=== PATIENT | male | born 1970 ===

== ENCOUNTER 2017-08-18 09:43 | Emergency (ER) | payer OTHER, SELFPAY ==
[2017-08-18 09:43] VITALS: BMI 25.0
[2017-08-18 09:55] VITALS: BP 109/73
--- NOTE | 2017-08-18 10:16 | C.PDOC ---
History Of Present Illness Hx obtained via telephone service representative. 46 year old male presents to the ER with a complaint of generalized arthralgia for the past month. The initial onset was to the bilateral ankles and has now become generalized but greater to the lower extremities than the upper; he also notes back and neck pain. Patient states the pain worsens in the morning but improves"if I keep moving or as day goes by " and recurs "if I sit too long or don't move for awhile". Patient reports mild relief with motrin 400mg Q6. He has associated mild right hand joint swelling. Denies trauma, associated weight loss, fever, GI symptoms, rash, focal weakness/ paresthesia, or travel. Patient is also complaining of a cough for a week. Denies MOSHER, chest pain, or SOB. VIA TRANS GEN ARTHRALGIA X 1 MO. INITIAL ONSET B/L ANKLES, NOW PROGRESS TO GEN BUT LE>UE, LOWER BACK AND NECK PAIN. WORSE IN MORNING BUT IMPROVES "IF I KEEP MOVING OR DAY GOES BY". RECURS "IF I SIT TOO LONG OR DONT MOVE FOR AWHILE". +MILD RELIEF W MOTRIN 400 MG Q6. +R HAND JOINT SWELL, MILD. NO TRAUMA. DENIES ASSOC WT LOSS, FEVER, GI SX, RASH, FOCAL WEAKNESS/PARESTHESIA. NO TRAVEL ALSO CO COUGH X 1 WEEK. NO MOSHER/CP,SOB EXAM NONTOXIC NAD HEENT NEG NECK NONTEND FROM LUNGS CTA B/L NO W/R/R ABD NEG EXT R HAND +MILD JOINT SWELL PIP & DIP NONTEND. LIMITED ROM DUE TO PAIN. B/L LE : NO JOINT SWELL, FULL AROM W PAIN, NONTEND. UE: FULL AROM W BACK NONTEND FROM PAIN, NO SWELL, NONTEND. ATRAUM. SKIN INTACT NO ERYTHEMA, LESIONS GAIT +PAIN B/L FEET W WT BEAR, LIMITED DUE TO PAIN. NEURO NO GROSS FOCAL DEF REMAINDER NEG MDM ARTHRALGIA UNK CAUSE. BRONCHITIS. CBC, PAIN RX, STEROID. ADVISED POSSIBLE NEED FOR RHEUMATOLOGY/CLINIC FU. Time Seen by Provider: 08/18/17 10:11 Chief Complaint (Nursing): Flu-like Symptoms History Per: Patient History/Exam Limitations: no limitations Onset/Duration Of Symptoms: Days Current Symptoms Are (Timing): Still Present Recent travel outside of the [place]: No Past Medical History Reviewed: Historical Data, Nursing Documentation, Vital Signs Vital Signs: Last Vital Signs Temp 98.7 F 08/18/17 09:52 Pulse 84 08/18/17 09:52 Resp 20 08/18/17 09:52 BP 109/73 08/18/17 09:52 Pulse Ox 96 08/18/17 11:00 - Medical History PMH: Back Problems Surgical History: No Surg Hx Family History: States: Unknown Family Hx - Social History Hx Alcohol Use: Yes Hx Substance Use: No - Immunization History Hx Tetanus Toxoid Vaccination: No Hx Influenza Vaccination: No Hx Pneumococcal Vaccination: No Review Of Systems Except As Marked, All Systems Reviewed And Found Negative. Constitutional: Negative for: Fever, Chills, Weight loss Cardiovascular: Negative for: Chest Pain Respiratory: Positive for: Cough. Negative for: Shortness of Breath, SOB with Excertion Gastrointestinal: Negative for: Nausea, Vomiting, Abdominal Pain Musculoskeletal: Positive for: Neck Pain, Arm Pain, Back Pain, Leg Pain Skin: Negative for: Rash Neurological: Negative for: Weakness, Numbness Physical Exam - Physical Exam Appears: Non-toxic, No Acute Distress Skin: Normal Color, Warm, Dry, Other (INTACT NO ERYTHEMA, LESIONS) Head: Atraumatic, Normacephalic Eye(s): bilateral: Normal Inspection Ear(s): Bilateral: Normal Nose: Normal Oral Mucosa: Moist Throat: Normal, No Erythema, No Exudate Neck: Normal, Supple Chest: Symmetrical, No Tenderness Cardiovascular: Rhythm Regular Respiratory: Normal Breath Sounds, No Rales, No Rhonchi, No Wheezing Gastrointestinal/Abdominal: Soft, No Tenderness Extremity: Other (R HAND +MILD JOINT SWELL PIP & DIP NONTEND. LIMITED ROM DUE TO PAIN. B/L LE: NO JOINT SWELL, FULL AROM W PAIN, NONTEND. UE: FULL AROM W PAIN , NO SWELL, NONTEND.) Neurological/Psych: Oriented x3, Normal Speech, Normal Motor, Normal Sensation, Other (NO GROSS FOCAL DEFICIT) Gait: Steady (+PAIN B/L FEET W WT BEAR, LIMITED DUE TO PAIN.) ED Course And Treatment - Laboratory Results Result Diagrams: 08/18/17 10:37 O2 Sat by Pulse Oximetry: 96 (Room air) Pulse Ox Interpretation: Normal - Radiology CXR: Interpreted by Me CXR Interpretation: Yes: No Acute Disease Reevaluation Time: 11:22 Reassessment Condition: Improved Medical Decision Making Medical Decision Making: ARTHRALGIA UNK CAUSE. BRONCHITIS. CBC, PAIN RX, STEROID. ADVISED POSSIBLE NEED FOR RHEUMATOLOGY/CLINIC FU. Disposition Counseled Patient/Family Regarding: Studies Performed, Diagnosis, Need For Followup, Rx Given - Disposition Referrals: [facility] [Outside] [facility] [Outside] Disposition: HOME/ ROUTINE Disposition Time: 11:22 Condition: IMPROVED Prescriptions: Acetaminophen [Tylenol Extra Strength] 2 tab PO Q6 #30 tablet Naproxen 500 mg PO BID #30 tab Instructions: Osteoarthritis (DC) Forms: J[employer]oud (Iraqi) Print Language: ST LUCIAN - Clinical Impression Clinical Impression: Arthralgia - Scribe Statement The provider has reviewed the documentation as recorded by the Scribanish Escalera All medical record entries made by the Williamibanish were at my direction and personally dictated by me. I have reviewed the chart and agree that the record accurately reflects my personal performance of the history, physical exam, medical decision making, and the department course for this patient. I have also personally directed, reviewed, and agree with the discharge instructions and disposition.
[2017-08-18 10:49] LABS: BASO # 0.1 K/uL (0.0-0.2); BASO % 0.6 % (0.0-2.0); EOS # 0.2 K/uL (0.0-0.7); HEMOGLOBIN 13.9 g/dL (12.0-18.0); LYMPH # 1.4 K/uL (1.0-4.3); LYMPH % 14.9 % (20.0-40.0); MEAN CELL VOLUME 87.5 fL (80.0-94.0); MEAN CORPUSCULAR HEMOGLOBIN 30.2 pg (27.0-31.0); MEAN CORPUSCULAR HGB CONC 34.5 g/dL (33.0-37.0); MEAN PLATELET VOLUME 8.4 fL (7.2-11.7); MONO # 0.7 K/uL (0.0-0.8); MONO % 7.4 % (0.0-10.0); NEUT % 75.1 % (50.0-75.0); RBC 4.62 Mil/uL (4.40-5.90); WHITE BLOOD COUNT 9.3 K/uL (4.8-10.8)
[2017-08-18 11:29] VITALS: PULSE 77; RESP 18; TEMP 98; O2SAT 100
--- NOTE | 2017-08-18 15:11 | RAD ---
HISTORY: COUGH COMPARISON: No prior. TECHNIQUE: Chest PA and lateral FINDINGS: LUNGS: No active pulmonary disease. PLEURA: No significant pleural effusion identified. No pneumothorax apparent. CARDIOVASCULAR: Normal. OSSEOUS STRUCTURES: No significant abnormalities. VISUALIZED UPPER ABDOMEN: Normal. OTHER FINDINGS: None. IMPRESSION: No active disease.
== END 2017-08-18 11:28 | disposition home or self-care (01) ==
LOC: C.ER 09:43
DX: M25.572 Pain in left ankle and joints of left foot (principal); M25.571 Pain in right ankle and joints of right foot; M25.541 Pain in joints of right hand
CPT/HCPCS: 71046; 85025; 96372; 99283; J1885; J8540

== ENCOUNTER 2017-12-02 11:12 | Emergency (ER) | payer OTHER ==
[2017-12-02 11:13] VITALS: BMI 25.0
[2017-12-02 11:27] VITALS: RESP 18
--- NOTE | 2017-12-02 11:51 | C.PDOC ---
History Of Present Illness 47 year old male with PMHx of rheumatoid arthritis presents to the ED complaining of left facial numbness with associated left eye irritation for the past 3 days. Reports he is unable to close left eye. Denies any extremity weakness, nausea, vomiting, tingling, rash or any other symptoms. no recent viral illness. no recent exposure to grass. kohli, ticks. Time Seen by Provider: 12/02/17 11:31 Chief Complaint (Nursing): Weakness/Neurological Deficit History Per: Patient, Family () History/Exam Limitations: no limitations Onset/Duration Of Symptoms: Days (3) Current Symptoms Are (Timing): Still Present Past Medical History Reviewed: Historical Data, Nursing Documentation, Vital Signs Vital Signs: Last Vital Signs Temp 97.3 F L 12/02/17 11:22 Pulse 79 12/02/17 11:22 Resp 18 12/02/17 11:22 BP 125/83 12/02/17 11:22 Pulse Ox 98 12/02/17 11:22 - Medical History PMH: Back Problems, Rheumatoid Arthritis Surgical History: No Surg Hx Family History: States: No Known Family Hx - Social History Hx Alcohol Use: Yes Hx Substance Use: No - Immunization History Hx Tetanus Toxoid Vaccination: No Hx Influenza Vaccination: No Hx Pneumococcal Vaccination: No Review Of Systems Eyes: Positive for: Pain (left). Negative for: Vision Change Gastrointestinal: Negative for: Nausea, Vomiting Neurological: Positive for: Weakness (left facial weakness). Negative for: Change in Speech Physical Exam - Physical Exam Appears: Non-toxic Skin: Warm, Dry, No Rash Head: Normacephalic, Other (left facial droop, decreased forehead wrinkle on left side ) Eye(s): bilateral: PERRL, right: EOMI (Unable to close left eye tightly ) Ear(s): Bilateral: Normal, Other (no vesicles noted ) Throat: Normal Neck: Supple Chest: No Tenderness Cardiovascular: Rhythm Regular Respiratory: Normal Breath Sounds, No Rales, No Rhonchi, No Wheezing Gastrointestinal/Abdominal: Soft, No Tenderness Extremity: Normal ROM Extremity: Bilateral: Atraumatic Neurological/Psych: Oriented x3, Normal Speech, Normal Cognition, Normal Motor, Normal Sensation, Normal Reflexes Gait: Steady ED Course And Treatment O2 Sat by Pulse Oximetry: 98 (RA) Pulse Ox Interpretation: Normal Medical Decision Making Medical Decision Making: Plan: - Zovirax 400mg PO - Prednisone 60mg PO pt with sympotms consistent with bells palsy, will tx with acl=yclovir and prednisone and f/u with neuro,. pt shown how to tape eye shut at night. Disposition Counseled Patient/Family Regarding: Diagnosis, Need For Followup, Rx Given - Disposition Referrals: Jennyfer Ferrara MD [Staff Provider] - [facility] [Outside] Martell Ravi [Staff Provider] - Disposition: HOME/ ROUTINE Disposition Time: 13:29 Condition: GOOD Additional Instructions: Por favor tome ambos medicamentos segn lo prescrito. Cinta del natasha jaja cerrado a la hora de acostarse. Lisbeth un seguimiento con un neurlogo, oculista y en yasmani clnica mdica en la prxima semana. Regrese a la collin de emergencias por cualquier sntoma peor. Please take both medications as prescribed. Tape left eye shut at bedtime. Follow up with neurologist, eye doctor and in medicial clinic in the next week. Return to ER for any worse symptms. Prescriptions: Acyclovir 400 mg PO 5XD #50 tablet predniSONE [predniSONE Tab] 40 mg PO DAILY #10 tab Instructions: Rossi's Palsy (DC) Forms: Gen Discharge Inst Andorran, SABIA (Andorran) Print Language: MAORI - Clinical Impression Clinical Impression: Rossi's palsy - PA / HVAC MAINTENANCE TECHNICIAN / Resident Statement MD/DO has reviewed & agrees with the documentation as recorded. - Scribe Statement The provider has reviewed the documentation as recorded by the Scribanish Sutton All medical record entries made by the Scribanish were at my direction and personally dictated by me. I have reviewed the chart and agree that the record accurately reflects my personal performance of the history, physical exam, medical decision making, and the department course for this patient. I have also personally directed, reviewed, and agree with the discharge instructions and disposition.
[2017-12-02 13:39] VITALS: BP 122/78; PULSE 70; TEMP 98; O2SAT 74
== END 2017-12-02 13:45 | disposition home or self-care (01) ==
LOC: C.ER 11:12
DX: G51.0 Bell's palsy (principal)

== ENCOUNTER 2017-12-30 10:03 | Emergency (ER) | payer OTHER ==
[2017-12-30 10:03] VITALS: BMI 25.0
[2017-12-30 10:19] VITALS: RESP 18; TEMP 98.1; O2SAT 97
--- NOTE | 2017-12-30 11:03 | C.PDOC ---
History Of Present Illness 47 year old male presents to the ED complaining of left ear pain for 4 days. Notes when he bends forward, he feels a pressure and decreased hearing. Denies any ear discharge, fever, chills, throat pain, tooth pain, jaw pain, neck pain, or any other complaints. Denies taking any medications for the symptoms. Time Seen by Provider: 12/30/17 10:12 Chief Complaint (Nursing): ENT Problem History Per: Patient, Family () History/Exam Limitations: None Onset/Duration Of Symptoms: Days (4) Current Symptoms Are (Timing): Still Present Quality (Ear): denies: Discharge Past Medical History Reviewed: Historical Data, Nursing Documentation, Vital Signs Vital Signs: Last Vital Signs Temp 98.1 F 12/30/17 10:12 Pulse 75 12/30/17 10:12 Resp 18 12/30/17 10:12 BP 113/81 12/30/17 10:12 Pulse Ox 97 12/30/17 10:12 - Medical History PMH: Back Problems, Rheumatoid Arthritis Surgical History: No Surg Hx Family History: States: No Known Family Hx - Social History Hx Alcohol Use: Yes Hx Substance Use: No - Immunization History Hx Tetanus Toxoid Vaccination: No Hx Influenza Vaccination: No Hx Pneumococcal Vaccination: No Review Of Systems Constitutional: Negative for: Fever, Chills ENT: Positive for: Ear Pain (left). Negative for: Ear Discharge, Throat Pain, Other (decreased hearing) Physical Exam - Physical Exam Appears: Non-toxic, No Acute Distress Skin: Warm, Dry, No Rash Head: Atraumatic, Normacephalic, Tenderness (left malar tenderness) Eye(s): bilateral: Normal Inspection, EOMI Ear(s): Left: Other (No mastoid tenderness, no TMJ tenderness ), Bilateral: Normal Nose: Normal Oral Mucosa: Moist Tongue: Normal Appearing Lips: Normal Appearing Teeth: Normal Dentition Gingiva: Normal Appearing Throat: Normal, No Erythema, No Exudate Neck: Normal ROM, Supple Chest: Symmetrical Cardiovascular: Rhythm Regular Respiratory: Normal Breath Sounds, No Rales, No Rhonchi, No Wheezing Extremity: Normal ROM Neurological/Psych: Oriented x3, Normal Speech Gait: Steady ED Course And Treatment O2 Sat by Pulse Oximetry: 97 (RA) Pulse Ox Interpretation: Normal Progress Note: Discussed with and pt, no evidence of eat infection. Will be treated for sinusitis secondary to sinus tenderness and pain with bending down. Patient was instructed to follow up with ENT in 1-2 days for further evaluation. Disposition - Disposition Referrals: [facility] [Outside] Fabrice Larose MD [Staff Provider] - Disposition: HOME/ ROUTINE Disposition Time: 11:01 Condition: STABLE Additional Instructions: Vaya a kumar mdico o la clnica en 2-5 jha sin falta, para mas evaluacin. [place] los medicamentos juan indicado. Volver a la collin de emergencia en cualquier momento si los sntomas persisten o empeoran. Prescriptions: Amoxicillin 875 mg PO BID #20 tablet Guaifen/Dextromethorphan/PE [Mucinex Fast-Max Congest-Cough] 1 each PO Q6 #20 tablet Instructions: Ear Infections (Otitis Media) Forms: baseclick (Uzbek) Print Language: DIVEHI - Clinical Impression Clinical Impression: Sinusitis - PA / EDUCATIONAL ASSISTANT / Resident Statement MD/DO has reviewed & agrees with the documentation as recorded. - Scribe Statement The provider has reviewed the documentation as recorded by the Scribe Jenn Sutton All medical record entries made by the Scribe were at my direction and personally dictated by me. I have reviewed the chart and agree that the record accurately reflects my personal performance of the history, physical exam, medical decision making, and the department course for this patient. I have also personally directed, reviewed, and agree with the discharge instructions and disposition.
[2017-12-30 11:24] VITALS: BP 125/78; PULSE 81
== END 2017-12-30 11:23 | disposition home or self-care (01) ==
LOC: C.ER 10:03
DX: J32.9 Chronic sinusitis, unspecified (principal)

== ENCOUNTER 2018-04-04 14:16 | Outpatient (CLI) | payer OTHER | END 2018-04-04 14:17 | disposition home or self-care (01) | LOC: C.LAB 14:16 | DX: M05.79 Rheumatoid arthritis with rheumatoid factor of multiple sites without organ or systems involvement (principal) ==

== ENCOUNTER 2018-06-13 11:11 | Emergency (ER) | payer OTHER ==
[2018-06-13 11:11] VITALS: BMI 25.0
[2018-06-13 11:21] VITALS: BP 110/71; PULSE 83; RESP 18; TEMP 97.8; O2SAT 96
--- NOTE | 2018-06-13 12:17 | C.PDOC ---
History Of Present Illness 47 year old male presents to the ED c/o left ankle pain since yesterday. 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 Patient states that he was not in much pain initially, rating it 3/10, and went home and iced the area. This morning, he noticed the area was more swollen and painful, rating it 7/10. Patient has not taken any [id number] pain medications. He denies numbness/weakness, tingling, head injury, or any other injuries elsewhere. Chief Complaint (Nursing): Lower Extremity Problem/Injury History Per: Patient History/Exam Limitations: no limitations Onset/Duration Of Symptoms: Hrs Current Symptoms Are (Timing): Still Present Additional History Per: Patient - Ankle/Foot Description Of Injury: Struck With Object Past Medical History Reviewed: Historical Data, Nursing Documentation, Vital Signs Vital Signs: Last Vital Signs Temp 97.8 F 06/13/18 11:13 Pulse 83 06/13/18 11:13 Resp 18 06/13/18 11:13 BP 110/71 06/13/18 11:13 Pulse Ox 96 06/13/18 11:13 Primary Care Provider: FAMILY PROVIDER,NO - Medical History PMH: Back Problems, Rheumatoid Arthritis Surgical History: No Surg Hx Family History: States: Unknown Family Hx - Social History Hx Alcohol Use: Yes Hx Substance Use: No - Immunization History Hx Tetanus Toxoid Vaccination: No Hx Influenza Vaccination: No Hx Pneumococcal Vaccination: No Review Of Systems Musculoskeletal: Positive for: Other (left ankle ) Neurological: Negative for: Weakness, Numbness, Other (head injury ) Physical Exam - Physical Exam Appears: Non-toxic, No Acute Distress Skin: Normal Color, Warm, Dry, No Other (erythema to left ankle ) Head: Atraumatic, Normacephalic, No Tenderness Eye(s): bilateral: Normal Inspection Nose: No Discharge Oral Mucosa: Moist Lips: Normal Appearing Throat: No Erythema, No Exudate Neck: Normal ROM, Supple Cardiovascular: Rhythm Regular Respiratory: Normal Breath Sounds, No Wheezing Extremity: Normal ROM, Tenderness (left ankle, on palpation ), No Pedal Edema, No Calf Tenderness, Capillary Refill (less than 2 seconds ), No Deformity, Other (edema to lateral aspect of left ankle ) Pulses: Left Dorsalis Pedis: Normal, Right Dorsalis Pedis: Normal Neurological/Psych: Oriented x3, Normal Speech, Normal Cognition, Normal Motor, Normal Sensation ED Course And Treatment O2 Sat by Pulse Oximetry: 96 (on RA ) Pulse Ox Interpretation: Normal Medical Decision Making Medical Decision Making: Impression: 47 year old male with left ankle pain Plan: * left ankle XR * Motrin PO * reassess and disposition Progress: Left ankle XR ordered and reviewed with patient. Motrin PO given for pain and patient notes improvement Jacinto bandage applied to left ankle He is stable for discharge. . Disposition Counseled Patient/Family Regarding: Studies Performed, Diagnosis, Need For Followup, Rx Given - Disposition Referrals: [facility] [Outside] Disposition: HOME/ ROUTINE Disposition Time: 12:42 Condition: IMPROVED Additional Instructions: continue motrin as needed for pain rest, cie, compression, and elevation follow up with pmd in 1-2 days return to the ED if symptoms worsen Prescriptions: Ibuprofen [Motrin] 600 mg PO Q8 PRN #30 tab PRN Reason: Pain, Moderate (4-7) Instructions: Ankle Sprain (DC) Forms: [email or web address] / [employer] (Danish) Print Language: FRENCH - Clinical Impression Clinical Impression: Left ankle pain, Left ankle sprain - PA / TECHNOLOGY ARCHITECT / Resident Statement MD/DO has reviewed & agrees with the documentation as recorded. - Scribe Statement The provider has reviewed the documentation as recorded by the Scribe (Charity Duarte) All medical record entries made by the Scribe were at my direction and personally dictated by me. I have reviewed the chart and agree that the record accurately reflects my personal performance of the history, physical exam, medical decision making, and the department course for this patient. I have also personally directed, reviewed, and agree with the discharge instructions and disposition.
--- NOTE | 2018-06-13 12:47 | RAD ---
PROCEDURE: Left Ankle Radiographs. Three views. HISTORY: s/p trauma COMPARISON: None available FINDINGS: BONES: No acute displaced fracture. JOINTS: No dislocation. SOFT TISSUES: Soft tissue swelling. No evidence of radiopaque foreign body. OTHER FINDINGS: None. IMPRESSION: Soft tissue swelling. No acute displaced fracture, dislocation, or significant joint effusion identified. If symptoms persist or if there is clinical concern, x-ray follow-up in 7-10 days should be considered.
== END 2018-06-13 12:58 | disposition home or self-care (01) ==
LOC: C.ER 11:11
DX: S93.402A Sprain of unspecified ligament of left ankle, initial encounter (principal); W22.8XXA Striking against or struck by other objects, initial encounter; M25.572 Pain in left ankle and joints of left foot